=== PATIENT | female | born 1995 | race Caucasian/White ===

== ENCOUNTER 2025-09-09 09:42 | Outpatient (RCR) | payer MEDICAID, SELFPAY | END 2025-09-29 23:59 | LOC: NS 09:42 | PROVIDERS: PCP Nurse Practitioner Family; Referring Provider Nurse Practitioner Family; Visit Provider Nurse Practitioner Family | DX: Z71.3 Dietary counseling and surveillance (principal); R63.4 Abnormal weight loss | CPT/HCPCS: 97802 ==